=== PATIENT | female | born 1965 | race African-American/Black ===

== ENCOUNTER 2021-11-28 04:32 | Day surgery (SDC) | payer OTHER ==
[2021-11-25 14:55] VITALS: BMI 32.9
[2021-11-28 09:25] VITALS: TEMP 97.8
[2021-11-28 10:08] VITALS: BP 107/63; PULSE 74
== END 2021-11-28 10:40 | disposition home or self-care (01) ==
LOC: JASU-ENDO 04:32
PROVIDERS: ATTEND Internal Medicine Gastroenterology
PROC: 0DJD8ZZ Inspection of Lower Intestinal Tract, Via Natural or Artificial Opening Endoscopic (ICD-10-PCS; principal; 2021-11-28 08:45)
DX: Z12.11 Encounter for screening for malignant neoplasm of colon (principal); K59.00 Constipation, unspecified; Z80.0 Family history of malignant neoplasm of digestive organs

== ENCOUNTER 2024-06-09 04:36 | Day surgery (SDC) | payer OTHER ==
[2024-06-01 12:05] VITALS: BMI 34.4
[2024-06-09 11:01] VITALS: TEMP 98.2
[2024-06-09 11:18] VITALS: BP 115/73; PULSE 74; RESP 14
== END 2024-06-09 12:05 | disposition home or self-care (01) ==
LOC: JASU-ENDO 04:36
PROVIDERS: ATTEND Internal Medicine Gastroenterology
PROC: 0DB78ZX Excision of Stomach, Pylorus, Via Natural or Artificial Opening Endoscopic, Diagnostic (ICD-10-PCS; 2024-06-09)
PROC: 0DB68ZX Excision of Stomach, Via Natural or Artificial Opening Endoscopic, Diagnostic (ICD-10-PCS; principal; 2024-06-09 09:30)
DX: R10.13 Epigastric pain (principal)
CPT/HCPCS: 88305-TC; 88342-TC